=== PATIENT | female | born 1995 | race Caucasian/White ===

== ENCOUNTER 2023-06-03 00:25 | Emergency (ER) | payer OTHER ==
[~2023-06-03] VITALS: Ht 152.4 cm; Wt 69.0 kg
[2023-06-03 00:35] VITALS: TEMP 98.3; O2SAT 97
[2023-06-03] MEDS ORDERED: AMOX1TAB15 MT (01:21)
[2023-06-03] MEDS ORDERED: LIDOCAINE HCL/PF 1% 10 MG/ML 5ML VIAL INFIL ONE (01:30)
[2023-06-03 02:15] VITALS: BP 132/86; PULSE 86; RESP 17
== END 2023-06-03 02:20 | disposition home or self-care (01) ==
LOC: ER 00:25
DX: S01.511A Laceration without foreign body of lip, initial encounter (principal); W54.0XXA Bitten by dog, initial encounter; Y93.89 Activity, other specified; Y92.89 Other specified places as the place of occurrence of the external cause; Y99.8 Other external cause status
CPT/HCPCS: 12011; 99283; J3490; Z7610 ×2

== ENCOUNTER 2023-06-10 07:44 | Emergency (ER) | payer OTHER ==
[~2023-06-10] VITALS: Ht 152.4 cm; Wt 69.0 kg
[~2023-06-10 07:44] MED LIST: AMOX1TAB15 MT
[2023-06-10 07:53] VITALS: BP 115/84; PULSE 79; RESP 18; TEMP 98.5; O2SAT 100
== END 2023-06-10 08:35 | disposition home or self-care (01) ==
LOC: ER 07:44
DX: S01.511D Laceration without foreign body of lip, subsequent encounter (principal); Z48.02 Encounter for removal of sutures; X58.XXXD Exposure to other specified factors, subsequent encounter
CPT/HCPCS: 99281